=== PATIENT | male | born 1940 | race Caucasian/White ===

== ENCOUNTER 2018-01-09 17:37 | Emergency (ER) | payer OTHER ==
[2018-01-09] MEDS ORDERED: LIDOCAINE HCL 1% 20 ML VIAL ONE (18:00)
[2018-01-09] MEDS ORDERED: TETANUS/DIPHTHERIA TOXOID [ADULT] 0.5 ML VIAL IM ONE (18:00)
== END 2018-01-09 19:49 | disposition home or self-care (01) ==
LOC: EDH 17:37
DX: S01.01XA Laceration without foreign body of scalp, initial encounter (principal); S70.02XA Contusion of left hip, initial encounter; I10 Essential (primary) hypertension; W18.39XA Other fall on same level, initial encounter; Y93.89 Activity, other specified; Y92.89 Other specified places as the place of occurrence of the external cause; Y99.8 Other external cause status
CPT/HCPCS: 12002; 70450; 72125; 72170; 90471; 90714

== ENCOUNTER 2018-04-14 15:31 | Emergency (ER) | payer OTHER ==
[2018-04-14 16:07] LABS: BASOPHILS % (AUTO) 0.6 % (0.0-5.0); EOSINOPHILS % (AUTO) 2.1 % (0.0-8.0); HEMATOCRIT 41.4 % (42-54); LYMPHOCYTES % (AUTO) 25.5 % (21.0-51.0); MEAN CORPUSCULAR HEMOGLOBIN 30.4 pg (27.0-33.0); MEAN CORPUSCULAR HGB CONC 33.9 g/dL (32.0-36.0); MEAN CORPUSCULAR VOLUME 89.8 fL (79-99); MONOCYTES % (AUTO) 7.4 % (3.0-13.0); NEUTROPHILS % (AUTO) 64.4 % (40.0-77.0); PLATELET COUNT (AUTO) 223 K/uL (130-400); RED BLOOD CELL COUNT(AUTO) 4.61 MIL/uL (4.50-6.20); RED CELL DISTRIBUTION WIDTH 13.2 % (11.0-15.5); WHITE BLOOD COUNT (AUTO) 8.6 K/uL (4.8-10.8)
[2018-04-14 16:10] LABS: APPEARANCE,URINE Clear (CLEAR); BILIRUBIN,URINE Negative (NEGATIVE); COLOR,URINE Yellow (YELLOW); GLUCOSE, URINE (UA) Negative (NEGATIVE); KETONES,URINE Negative (NEGATIVE); LEUKOCYTE ESTERASE ,URINE Negative (NEGATIVE); NITRATE,URINE Negative (NEGATIVE); OCCULT BLOOD,URINE Negative (NEGATIVE); PROTEIN,URINE Negative (NEGATIVE); UROBILINOGEN,URINE 0.2 mg/dL (0.2-1.0)
[2018-04-14 16:29] LABS: CREATININE 1.3 mg/dL (0.5-1.5); POTASSIUM 3.9 mmol/L (3.5-5.1)
[2018-04-14 16:32] LABS: BILIRUBIN,TOTAL 0.2 mg/dL (0.2-1.0); TOTAL PROTEIN, SERUM 7.5 g/dL (6.0-8.3)
== END 2018-04-14 16:58 | disposition home or self-care (01) ==
LOC: EDH 15:31
DX: M54.5 Low back pain (principal); R10.9 Unspecified abdominal pain; I10 Essential (primary) hypertension; E11.9 Type 2 diabetes mellitus without complications; E78.5 Hyperlipidemia, unspecified
CPT/HCPCS: 36415; 80053; 81003; 83690; 85025

== ENCOUNTER → 2018-11-24 | Outpatient (CLI) | payer OTHER ==
[~2018-11-24] VITALS: Ht 188 cm; Wt 100.7 kg
[~2018-11-24] MED LIST: REGADENOSON 0.4 MG/5 ML PF SYG IVP SCH
== END | disposition home or self-care (01) ==
LOC: SHCH 08:48
PROVIDERS: ATTEND Internal Medicine Cardiovascular Disease
DX: Z01.810 Encounter for preprocedural cardiovascular examination (principal); I10 Essential (primary) hypertension; E78.5 Hyperlipidemia, unspecified; E11.9 Type 2 diabetes mellitus without complications
CPT/HCPCS: 78452; 93017; 96374; A9500 ×2; J2785

== ENCOUNTER 2019-08-28 11:00 | Inpatient (IN) | payer OTHER ==
[~2019-08-28] VITALS: Ht 188 cm; Wt 101.3 kg
[2019-08-30 13:20] LABS: BASOPHILS % (AUTO) 0.8 % (0.0-5.0); EOSINOPHILS % (AUTO) 3.5 % (0.0-8.0); HEMATOCRIT 41.6 % (42-54); LYMPHOCYTES % (AUTO) 27.2 % (21.0-51.0); MEAN CORPUSCULAR HEMOGLOBIN 30.9 pg (27.0-33.0); MEAN CORPUSCULAR HGB CONC 34.4 g/dL (32.0-36.0); MEAN CORPUSCULAR VOLUME 89.8 fL (79-99); NEUTROPHILS % (AUTO) 61.2 % (40.0-77.0); PLATELET COUNT (AUTO) 230 K/uL (130-400); RED BLOOD CELL COUNT(AUTO) 4.63 MIL/uL (4.50-6.20); RED CELL DISTRIBUTION WIDTH 12.8 % (11.0-15.5); WHITE BLOOD COUNT (AUTO) 7.6 K/uL (4.8-10.8)
[2019-08-30 13:25] LABS: APPEARANCE,URINE Clear (CLEAR); BILIRUBIN,URINE Negative (NEGATIVE); COLOR,URINE Yellow (YELLOW); GLUCOSE, URINE (UA) Negative (NEGATIVE); KETONES,URINE Negative (NEGATIVE); LEUKOCYTE ESTERASE ,URINE Negative (NEGATIVE); NITRATE,URINE Negative (NEGATIVE); OCCULT BLOOD,URINE Negative (NEGATIVE); PROTEIN,URINE Negative (NEGATIVE); UROBILINOGEN,URINE 0.2 mg/dL (0.2-1.0)
[2019-08-30 13:29] LABS: CREATININE 1.3 mg/dL (0.5-1.5); POTASSIUM 4.7 mmol/L (3.5-5.1)
[2019-08-30 13:30] LABS: INR 0.92 (0.85-1.15)
[2019-09-01 12:13] VITALS: BP 120/74
[2019-09-04] MEDS ORDERED: LISI40TA4 PO (12:53)
[2019-09-04] MEDS ORDERED: CYAN500T63 PO (12:53)
[2019-09-04] MEDS ORDERED: OMEP20CA12 PO (12:53)
[2019-09-04] MEDS ORDERED: METF-444 PO (12:53)
[2019-09-04] MEDS ORDERED: GLIP5TAB11 PO (12:53)
[2019-09-04] MEDS ORDERED: IBUP-2077 PO (12:53)
[2019-09-04] MEDS ORDERED: TRIA1TAB5 PO (12:53)
[2019-09-04] MEDS ORDERED: PRAV80TA21 PO (12:53)
[2019-09-04] MEDS ORDERED: CHOL100018 PO (12:53)
[2019-09-05] VITALS (21 sets, daily range): BP systolic 105–130; BP diastolic 55–76
[2019-09-05] MEDS ORDERED: CEFAZOLIN SODIUM 1 GM VIAL IVP SCH (06:00)
[2019-09-05] MEDS ORDERED: SODIUM CHLORIDE 0.9% 1000ML 1,000 ML IV ONE (09:38)
[2019-09-05] MEDS ORDERED: TRANEXAMIC ACID 1000MG/10ML ONE ×2 (09:39→15:53)
[2019-09-05] MEDS ORDERED: CEFAZOLIN SODIUM 1 GM VIAL ONE (11:57)
[2019-09-05] MEDS ORDERED: ROCURONIUM 10MG/1ML SYR 10 MG/ML ML ONE (12:55)
[2019-09-05] MEDS ORDERED: LIDOCAINE PF 2% 5ML ABBOJECT ONE (12:55)
[2019-09-05] MEDS ORDERED: PROPOFOL 10 MG/ML 20ML VIAL IV ONE (12:55)
[2019-09-05] MEDS ORDERED: SUCCINYLCHOLINE CHLORIDE 20 MG/ML 10 ML VIAL ONE (12:55)
[2019-09-05] MEDS ORDERED: KETAMINE 50MG/ML SYRINGE 50 MG/ML DISP.SYRIN IV ONE (12:59)
[2019-09-05] MEDS ORDERED: NEOSTIGMINE 5MG/5ML SYR IV ONE (13:24)
[2019-09-05] MEDS ORDERED: GLYCOPYRROLATE 1 MG/5 ML SYRINGE ONE (13:24)
[2019-09-05] MEDS ORDERED: ONDANSETRON HCL 4 MG/2 ML VIAL ONE (13:24)
[2019-09-05] MEDS ORDERED: CEFAZOLIN SODIUM 1 GM VIAL IRRIG ONE (14:12)
[2019-09-05] MEDS ORDERED: FENTANYL CITRATE PF 50 MCG/1 ML 2ML VIAL ONE (14:39)
[2019-09-05] MEDS: SODIUM CHLORIDE 0.9% 1000ML 1,000 ML IV SCH (15:36)
[2019-09-05] MEDS ORDERED: TRAMADOL HCL 50 MG TABLET PO PRN (15:45)
[2019-09-05] MEDS ORDERED: POTASSIUM CHLORIDE 20 MEQ ERTAB PO PRN (15:45)
[2019-09-05] MEDS ORDERED: KETOROLAC TROMETHAMINE 15MG/ML IV PRN (15:45)
[2019-09-05] MEDS ORDERED: FERROUS FUMARATE 324 MG TABLET PO PRN (15:45)
[2019-09-05] MEDS ORDERED: CALCIUM CARBONATE 500 MG TABLET PO PRN (15:45)
[2019-09-05] MEDS ORDERED: POTASSIUM CHLORIDE 20MEQ/100ML 100 ML IV PRN (15:45)
[2019-09-05] MEDS ORDERED: ONDANSETRON HCL 4 MG/2 ML VIAL IVP PRN (15:45)
[2019-09-05] MEDS ORDERED: TEMAZEPAM 15 MG CAPSULE PO PRN (15:45)
[2019-09-05] MEDS ORDERED: LIDOCAINE HCL-MPF 1% 2ML VIAL IV PRN (15:45)
[2019-09-05] MEDS ORDERED: DiphenhydrAMINE HCL 50 MG/ML VIAL IVP PRN (15:45)
[2019-09-05] MEDS ORDERED: OXYCODONE HCL 5 MG TAB PO PRN (15:45)
[2019-09-05] MEDS: ACETAMINOPHEN EXTRA STRENGTH 500 MG TABLET PO SCH (15:45)
[2019-09-05] MEDS ORDERED: POTASSIUM CHLORIDE 10% ELIXIR 20 MEQ/15 ML UDCUP PO PRN (15:45)
[2019-09-05] MEDS ORDERED: MEPERIDINE-PF 25 MG/ML SYG ONE ×2 (16:25→16:35)
[2019-09-05] MEDS: INSULIN HUMULIN R 100 UNIT/ML 3ML SQ SCH ×2 (16:30→20:47)
--- NOTE | 2019-09-05 17:10 | NUR ---
PROCEDURE REPORT RECEIVED FROM LINDA RN (PACU). PATIENT S/P LEFT TKA BY DR. MARI UNDER GENERAL ANESTHESIA WITH BLOCK. CHELLY DRESSING DRY AND INTACT. PATIENT DTV, [id number]. PATIENT STABLE AND DENIES ANY DISCOMFORT AT THIS TIME. WILL CONTINUE TO MONITOR PATIENT CLOSELY.
[2019-09-05] MEDS: OXYCODONE HCL 5 MG TAB PO PRN (19:03)
[2019-09-05] MEDS: CEFAZOLIN SODIUM 1 GM VIAL IVP SCH (20:34)
[2019-09-05] MEDS: CELECOXIB 200 MG CAP PO SCH (20:34)
[2019-09-05] MEDS: PREGABALIN 25 MG CAP PO SCH (20:34)
[2019-09-05] MEDS: ASPIRIN 81MG TAB.CHEW PO SCH (20:34)
[2019-09-05] MEDS: CYANOCOBALAMIN (VITAMIN B-12) 1,000 MCG TABLET PO SCH (21:00)
[2019-09-06] MEDS: ACETAMINOPHEN EXTRA STRENGTH 500 MG TABLET PO SCH ×3 (01:14→15:56)
[2019-09-06] MEDS: OXYCODONE HCL 5 MG TAB PO PRN ×3 (01:14→21:17)
[2019-09-06] MEDS: SODIUM CHLORIDE 0.9% 1000ML 1,000 ML IV SCH ×2 (01:47→11:36)
[2019-09-06 04:00] VITALS: BP 112/56
[2019-09-06 04:40] LABS: HEMATOCRIT 31.4 % (42-54); MEAN CORPUSCULAR HEMOGLOBIN 30.9 pg (27.0-33.0); MEAN CORPUSCULAR HGB CONC 34.4 g/dL (32.0-36.0); RED BLOOD CELL COUNT(AUTO) 3.49 MIL/uL (4.50-6.20); RED CELL DISTRIBUTION WIDTH 12.8 % (11.0-15.5); WHITE BLOOD COUNT (AUTO) 10.2 K/uL (4.8-10.8)
[2019-09-06] MEDS ORDERED: CEFAZOLIN SODIUM 1 GM VIAL ONE (05:06)
[2019-09-06 05:10] LABS: CREATININE 1.1 mg/dL (0.5-1.5); POTASSIUM 4.1 mmol/L (3.5-5.1)
[2019-09-06] MEDS: CEFAZOLIN SODIUM 1 GM VIAL IVP SCH (05:14)
[2019-09-06] MEDS: INSULIN HUMULIN R 100 UNIT/ML 3ML SQ SCH ×4 (06:33→21:25)
[2019-09-06 08:01] VITALS: BP 111/61
[2019-09-06] MEDS: POLYETHYLENE GLYCOL 3350 17 GM POWD.PACK PO SCH (08:45)
[2019-09-06] MEDS: LISINOPRIL 20 MG TABLET PO SCH (08:46)
[2019-09-06] MEDS: GLIPIZIDE 5 MG TABLET PO SCH (08:46)
[2019-09-06] MEDS: TAMSULOSIN HCL 0.4 MG CAP.ER.24H PO SCH (08:46)
[2019-09-06] MEDS: METFORMIN HCL 500 MG TABLET PO SCH ×2 (08:46→16:45)
[2019-09-06] MEDS: ASPIRIN 81MG TAB.CHEW PO SCH ×2 (08:46→21:17)
[2019-09-06] MEDS: PREGABALIN 25 MG CAP PO SCH ×2 (08:47→21:18)
[2019-09-06] MEDS: CELECOXIB 200 MG CAP PO SCH ×2 (08:47→21:18)
[2019-09-06] MEDS: PANTOPRAZOLE SODIUM 40 MG TABLET.DR PO SCH (08:47)
[2019-09-06] MEDS: TRIAMTEREN/HCTZ 37.5/25 MG 1 TAB TAB PO SCH (08:47)
[2019-09-06] MEDS: **HM**(Cholecalciferol (Vitamin D3) (Vitamin D3) 50 MCG PO SCH ×2 (08:48→21:00)
--- NOTE | 2019-09-06 10:57 | NUR ---
MET W PATIENT FOR DC PLANNING- LIVES WITH SPOUSE, HAS A CANE AND STD WALKER , TWO STEP TO INSIDE, PREVIOUSLY INDEPENDENT, SPOUSE TO PROVIDE TRANSPORT HOME [facility], [facility] PREPRED, WAITING ON PT NOTE TO SEND REFERRAL Addendum: 09/06/19 at 1059 by JACOB SILVA RN CM Amended: Links added. Addendum: 09/06/19 at 1114 by JACOB SILVA RN CM walker patient has at home is 'very old and has two wheels'- will ensure std walker, no wheels and 3 in one chair included in request to [place]
--- NOTE | 2019-09-06 10:59 | NUR ---
DISPOSITION: HOME [facility] PER [facility], 3 IN 1 CHAIR PER [facility] Addendum: 09/06/19 at 1100 by JACOB SILVA RN CM Amended: Links added.
[2019-09-06 11:17] VITALS: BP 114/60
[2019-09-06 16:19] VITALS: BP 138/70
[2019-09-06 20:00] VITALS: BP 119/67
[2019-09-06] MEDS ORDERED: ATORVASTATIN CALCIUM 10 MG TABLET PO SCH (21:00)
[2019-09-06] MEDS: CYANOCOBALAMIN (VITAMIN B-12) 1,000 MCG TABLET PO SCH (21:18)
[2019-09-07] VITALS: BP 125/63
[2019-09-07] MEDS: ACETAMINOPHEN EXTRA STRENGTH 500 MG TABLET PO SCH ×2 (01:12→07:45)
[2019-09-07 04:00] VITALS: BP 125/66
[2019-09-07] MEDS: OXYCODONE HCL 5 MG TAB PO PRN (06:26)
[2019-09-07] MEDS: INSULIN HUMULIN R 100 UNIT/ML 3ML SQ SCH ×2 (06:41→11:29)
[2019-09-07 08:06] VITALS: BP 125/68
--- NOTE | 2019-09-07 08:25 | NUR ---
[facility] ON [facility] YESTERDAY CM ADDED WALKER TO DME ORDER TO [facility] AND UPDATE THE REQUEST TO HAVE IT DELIVERED TO THE HOSPITAL. [facility]ITING ON [facility] ASSIGNMENT [facility].
[2019-09-07] MEDS: LISINOPRIL 20 MG TABLET PO SCH (09:00)
[2019-09-07] MEDS: **HM**(Cholecalciferol (Vitamin D3) (Vitamin D3) 50 MCG PO SCH (09:00)
[2019-09-07] MEDS: TRIAMTEREN/HCTZ 37.5/25 MG 1 TAB TAB PO SCH (09:07)
[2019-09-07] MEDS: METFORMIN HCL 500 MG TABLET PO SCH (09:07)
[2019-09-07] MEDS: CELECOXIB 200 MG CAP PO SCH (09:08)
[2019-09-07] MEDS: PREGABALIN 25 MG CAP PO SCH (09:08)
[2019-09-07] MEDS: TAMSULOSIN HCL 0.4 MG CAP.ER.24H PO SCH (09:08)
[2019-09-07] MEDS: ASPIRIN 81MG TAB.CHEW PO SCH (09:09)
[2019-09-07] MEDS: PANTOPRAZOLE SODIUM 40 MG TABLET.DR PO SCH (09:09)
[2019-09-07] MEDS: POLYETHYLENE GLYCOL 3350 17 GM POWD.PACK PO SCH (09:09)
[2019-09-07] MEDS: GLIPIZIDE 5 MG TABLET PO SCH (09:18)
[2019-09-07 11:10] VITALS: BP 119/63
[2019-09-07] MEDS ORDERED: HYDR-4457 PO (13:07)
[2019-09-07] MEDS ORDERED: ASPI-1005 PO (13:07)
--- NOTE | 2019-09-07 14:30 | NUR ---
REPORT GIVEN TO [facility] NURSE REPORT GIVEN TO MALGORZATA CHRISTENSEN. DISCHARGE ORDERS FAXED TO [facility].
--- NOTE | 2019-09-07 16:03 | NUR ---
HOME WITH [facility] WALKER PER [facility], BUT NOT UNTIL TUESDAY. PATIENT LEFT WITH ONE OF OUR WALKERS,CHART TAGGED Addendum: 09/07/19 at 1605 by JACOB SILVA RN CM Amended: Links added.
[2019-09-08] MEDS ORDERED: BISACODYL 10 MG SUPP.RECT RC PRN (15:45)
== END 2019-09-07 15:33 | disposition home health service (06) | DRG 470 ==
LOC: EDSTATUS 11:00 → DAHIP 09-05 07:19 → 3CH 09-05 16:15
PROVIDERS: ADMIT Orthopaedic Surgery; ATTEND Orthopaedic Surgery
PROC: 0SRD0J9 Replacement of Left Knee Joint with Synthetic Substitute, Cemented, Open Approach (ICD-10-PCS; principal; 2019-09-05 12:55)
PROC: 3E0T3BZ Introduction of Anesthetic Agent into Peripheral Nerves and Plexi, Percutaneous Approach (ICD-10-PCS; 2019-09-05 12:55)
DX: M17.12 Unilateral primary osteoarthritis, left knee (principal); E03.9 Hypothyroidism, unspecified; E11.9 Type 2 diabetes mellitus without complications; E78.00 Pure hypercholesterolemia, unspecified; F43.10 Post-traumatic stress disorder, unspecified; I11.9 Hypertensive heart disease without heart failure; M23.8X2 Other internal derangements of left knee; K29.50 Unspecified chronic gastritis without bleeding; I25.10 Atherosclerotic heart disease of native coronary artery without angina pectoris; F32.9 Major depressive disorder, single episode, unspecified; G89.29 Other chronic pain; K21.9 Gastro-esophageal reflux disease without esophagitis; Z96.651 Presence of right artificial knee joint; Z87.891 Personal history of nicotine dependence; Z80.9 Family history of malignant neoplasm, unspecified; Z11.59 Encounter for screening for other viral diseases
CPT/HCPCS: 36415; 80048; 81003; 82948; 85025; 85027; 85610; 87641; 88305; 88311; 97039; A4344; G0378; J0330; J0690; J1815; J1885; J2001; J2175; J2405; J2704; J2710; J3010; J3490; J7030; J7120